=== PATIENT | male | born 1950 | race American Indian/Alaskan Native ===

== ENCOUNTER 2016-11-04 06:05 | Observation (INO) | payer MEDICARE, MEDICAID ==
[2016-11-04] MEDS ORDERED: Nitroglycerin 2% Ointment Foilpak UD TOP STA (06:24)
--- NOTE | 2016-11-04 06:24 | ED PDOC ---
Arrival/HPI - General Chief Complaint: Chest Pain Time Seen by Provider: 11/04/16 06:07 - History of Present Illness Narrative History of Present Illness (Text): 11/04/16 06:21 Patient with left-sided chest radiating rate into the left shoulder no shortness of breath no nausea no vomiting no fever no chills of visit is no headache denies any previous episodes of cardiac problems. Admits to smoking in the past also complaining of rash to the groin Past Medical History - Provider Review Nursing Documentation Reviewed: Yes - Travel History Have you recently traveled outside [place] w/in the past 3 mons?: Yes - Cardiac Hx Cardiac Disorders: Yes Hx Hypertension: Yes - Pulmonary Hx Respiratory Disorders: Yes Hx Chronic Obstructive Pulmonary Disease (COPD): Yes - Neurological Hx Neurological Disorder: No - HEENT Hx HEENT Disorder: No - Renal Hx Renal Disorder: No - Endocrine/Metabolic Hx Endocrine Disorders: No - Hematological/Oncological Hx Blood Disorders: Yes - Integumentary Hx Dermatological Disorder: No - Musculoskeletal/Rheumatological Hx Musculoskeletal Disorders: No - Gastrointestinal Hx Gastrointestinal Disorders: No - Genitourinary/Gynecological Hx Genitourinary Disorders: No - Psychiatric Hx Psychophysiologic Disorder: No Hx Substance Use: No Family/Social History - Physician Review Nursing Documentation Reviewed: Yes Family/Social History: No Known Family HX Smoking Status: Former Smoker Hx Alcohol Use: Yes Frequency of alcohol use: Socially Hx Substance Use: No Allergies/Home Meds Allergies/Adverse Reactions: Allergies No Known Allergies Allergy (Verified 11/04/16 06:11) Home Medications: Home Meds Medication Instructions Recorded Confirmed Abacavir Sulfate/Lamivudine 1 tab PO DAILY 11/04/16 11/04/16 [Epzicom] Atazanavir [Reyataz] 300 mg PO DAILY 11/04/16 11/04/16 Ritonavir [Norvir] 100 mg PO DAILY 11/04/16 11/04/16 amLODIPine [Norvasc] 5 mg PO DAILY 11/04/16 11/04/16 Review of Systems - Review of Systems Constitutional: Normal Eyes: Normal ENT: Normal Respiratory: Normal Cardiovascular: Chest Pain Gastrointestinal: Normal Genitourinary Male: Normal Musculoskeletal: Normal Skin: Normal, Rash (Groin) Neurological: Normal Endocrine: Normal Hemo/Lymphatic: Normal Psychiatric: Normal Physical Exam Vital Signs Reviewed: Yes Vital Signs Temp Pulse Resp BP Pulse Ox 11/04/16 10:51 74 16 150/97 H 96 11/04/16 09:59 80 16 161/110 H 100 11/04/16 09:00 71 16 155/107 H 98 11/04/16 06:15 97.7 F 79 20 160/101 H 97 Temperature: Afebrile Blood Pressure: Normal Pulse: Regular Respiratory Rate: Normal Appearance: Positive for: Well-Appearing, Non-Toxic, Comfortable Pain Distress: None Mental Status: Positive for: Alert and Oriented X 3 - Systems Exam Head: Present: Atraumatic, Normocephalic Pupils: Present: PERRL Extroacular Muscles: Present: EOMI Conjunctiva: Present: Normal Mouth: Present: Moist Mucous Membranes Neck: Present: Normal Range of Motion Respiratory/Chest: Present: Clear to Auscultation, Good Air Exchange. No: Respiratory Distress, Accessory Muscle Use Cardiovascular: Present: Regular Rate and Rhythm, Normal S1, S2. No: Murmurs Abdomen: Present: Normal Bowel Sounds. No: Tenderness, Distention, Peritoneal Signs Back: Present: Normal Inspection Upper Extremity: Present: Normal Inspection. No: Cyanosis, Edema Lower Extremity: Present: Normal Inspection. No: Edema Neurological: Present: GCS=15, CN II-XII Intact, Speech Normal Skin: Present: Warm, Dry, Normal Color. No: Rashes Psychiatric: Present: Alert, Oriented x 3, Normal Insight, Normal Concentration Medical Decision Making - Lab Interpretations Lab Results: 11/04/16 06:20 11/04/16 06:20 Lab Results 11/04/16 06:20: PT 11.1, INR 1.03, APTT 29.6 11/04/16 06:20: Sodium 137, Potassium 3.7, Chloride 106, Carbon Dioxide 24, Anion Gap 11, BUN 10, Creatinine 0.5, Est GFR ( Amer) > 60, Est GFR (Non- Af Amer) > 60, Random Glucose 120 H, Calcium 9.4, Magnesium 2.1, Total Bilirubin 1.6 H, AST 56, ALT 75 H, Alkaline Phosphatase 88, Lactate Dehydrogenase 676, Total Creatine Kinase 31 L, Troponin I 0.02, Total Protein 7.5, Albumin 3.8, Globulin 3.7, Albumin/Globulin Ratio 1.0 L 11/04/16 06:20: WBC 5.4, RBC 3.73, Hgb 11.8 L, Hct 34.1 L, MCV 91.4, MCH 31.6, MCHC 34.6, RDW 15.7 H, Plt Count 257, MPV 9.0, Gran % 63.6, Lymph % (Auto) 28.4 , [place] % (Auto) 7.6 H, Eos % (Auto) 0.2 L, Baso % (Auto) 0.2, Gran # 3.41, Lymph # 1.5, [place] # 0.4, Eos # 0.0, Baso # 0.01 - RAD Interpretation Radiology Orders: 11/04/16 06:25 CHEST PORTABLE [RAD] Stat - EKG Interpretation EKG Interpretation (Text): 11/04/16 06:23 EKG normal sinus rhythm with sinus arrhythmia and nonspecific ST segment changes possible early repolarization rate of 70 - Medication Orders Current Medication Orders: Discontinued Medications Albuterol/Ipratropium (Duoneb 3 Mg/0.5 Mg (3 Ml) Ud) 3 ml IH [id number] [facility] Last Admin: 11/05/16 07:57 Dose: 3 ml Albuterol/Ipratropium (Duoneb 3 Mg/0.5 Mg (3 Ml) Ud) 3 ml IH Q2H PRN PRN Reason: Shortness of Breath Amlodipine Besylate (Norvasc) 5 mg PO DAILY [facility] Last Admin: 11/05/16 09:45 Dose: 5 mg Comments: no working wal availabe, scanner broken. medication verified x3, patient verbalized name and birthday. Aspirin (Aspirin) 325 mg PO STAT STA Stop: 11/04/16 06:25 Last Admin: 11/04/16 06:51 Dose: 325 mg Aspirin (Ecotrin) 81 mg PO DAILY [facility] Last Admin: 11/05/16 09:47 Dose: 81 mg Comments: no working [facility] availabe, scanner broken. medication verified x3, patient verbalized name and birthday. Budesonide (Pulmicort Respules) 0.5 mg IH [id number] [facility] Last Admin: 11/05/16 07:57 Dose: 0.5 mg Morphine Sulfate (Morphine) 2 mg IVP STAT STA Stop: 11/04/16 07:04 Last Admin: 11/04/16 07:10 Dose: 2 mg Nitroglycerin (Nitro-Bid 2% Oint) 1 ea TOP STAT STA Stop: 11/04/16 06:25 Last Admin: 11/04/16 06:51 Dose: 1 ea Non-Formulary Medication (Atazanavir [Reyataz]) 300 mg PO DAILY [facility] Non-Formulary Medication (Ritonavir [Norvir]) 100 mg PO DAILY [facility] Pneumococcal Polyvalent Vaccine (Pneumovax 23 Vaccine) 0.5 ml IM .ONCE ONE Stop: 11/04/16 14:18 Prednisone (Prednisone Tab) 20 mg PO DAILY [facility] Last Admin: 11/05/16 09:46 Dose: 20 mg Comments: no working wal availabe, scanner broken. medication verified x3, patient verbalized name and birthday. Tiotropium [place] (Spiriva) 18 mcg IH DAILY [facility] Last Admin: 11/05/16 11:25 Dose: 18 mcg - Transfer of Care Patient signed out to Dr:: sailaja labs and dispo Disposition/Present on Arrival - Present on Arrival Any Indicators Present on Arrival: No History of DVT/PE: No History of Uncontrolled Diabetes: No Urinary Catheter: No History of Decub. Ulcer: No History Surgical Site Infection Following: None - Disposition Have Diagnosis and Disposition been Completed?: Yes Diagnosis: Chest pain Disposition: HOSPITALIZED Disposition Time: 07:00 Condition: FAIR
[2016-11-04 06:38] LABS: ADD MANUAL DIFF? NO
[2016-11-04 07:00] LABS: BASO # 0.01 K/mm3 (0.0-2.0); BASO % 0.2 % (0.0-3.0); EOS % 0.2 % (1.5-5.0); GRAN # 3.41 (1.4-6.5); GRAN % 63.6 % (50.0-68.0); HEMATOCRIT 34.1 % (42.0-52.0); LYMPH # 1.5 (1.2-3.4); LYMPH % 28.4 % (22.0-35.0); MEAN CELL VOLUME 91.4 fL (80.0-105.0); MEAN CORPUSCULAR HEMOGLOBIN 31.6 pg (25.0-35.0); MEAN CORPUSCULAR HGB CONC 34.6 g/dl (31.0-37.0); MONO # 0.4 (0.1-0.6); MONO % 7.6 % (1.0-6.0); PLATELET COUNT 257 10^3/uL (120.0-450.0); RED CELL DISTRIBUTION WIDTH 15.7 % (11.5-14.5); WHITE BLOOD COUNT 5.4 10^3/ul (4.5-11.0)
[2016-11-04] MEDS ORDERED: Morphine 2 mg/ml ISec IVP STA (07:03)
[2016-11-04 07:07] LABS: ALKALINE PHOSPHATASE 88 U/L (38-133); ALT/SGPT 75 U/L (7-56); AST/SGOT 56 U/L (15-59); BILIRUBIN,TOTAL 1.6 mg/dL (0.2-1.3); BLOOD UREA NITROGEN 10 mg/dL (7-21); CALCIUM 9.4 mg/dL (8.4-10.5); CARBON DIOXIDE 24 mmol/L (21-33); CHLORIDE 106 mmol/L (98-107); GFR AFRICAN-AMERICAN > 60; GLUCOSE,RANDOM 120 mg/dL (70-110); INR 1.03 (0.93-1.08); MAGNESIUM 2.1 mg/dL (1.7-2.2); PARTIAL THROMBOPLASTIN TIME 29.6 Seconds (23.7-30.8); POTASSIUM 3.7 mmol/L (3.6-5.0); SODIUM 137 mmol/L (132-148); TOTAL PROTEIN 7.5 g/dL (5.8-8.3)
--- NOTE | 2016-11-04 07:10 | ED PDOC ---
Physical Exam Vital Signs Reviewed: Yes Vital Signs Temp Pulse Resp BP Pulse Ox 11/04/16 09:00 71 16 155/107 H 98 11/04/16 06:15 97.7 F 79 20 160/101 H 97 Temperature: Afebrile Blood Pressure: Hypertensive Pulse: Regular Respiratory Rate: Normal Appearance: Positive for: Well-Appearing, Non-Toxic, Comfortable Pain Distress: None Mental Status: Positive for: Alert and Oriented X 3 Medical Decision Making ED Course and Treatment: 11/04/16 07:09 pending labs and admission for chest pain. 11/04/16 07:[address] Thakur, who agrees with patient admission to telemetry observation. Dr. Graves on consult. pt in no distress and denies complaints, aware of and agrees with plan chest xray: Creator : Neftali Gr MD 11/04/2016 08:37 IMPRESSION: No active disease. - Lab Interpretations Lab Results: 11/04/16 06:20 11/04/16 06:20 Lab Results 11/04/16 06:20: PT 11.1, INR 1.03, APTT 29.6 11/04/16 06:20: Sodium 137, Potassium 3.7, Chloride 106, Carbon Dioxide 24, Anion Gap 11, BUN 10, Creatinine 0.5, Est GFR ( Amer) > 60, Est GFR (Non- Af Amer) > 60, Random Glucose 120 H, Calcium 9.4, Magnesium 2.1, Total Bilirubin 1.6 H, AST 56, ALT 75 H, Alkaline Phosphatase 88, Lactate Dehydrogenase 676, Total Creatine Kinase 31 L, Troponin I 0.02, Total Protein 7.5, Albumin 3.8, Globulin 3.7, Albumin/Globulin Ratio 1.0 L 11/04/16 06:20: WBC 5.4, RBC 3.73, Hgb 11.8 L, Hct 34.1 L, MCV 91.4, MCH 31.6, MCHC 34.6, RDW 15.7 H, Plt Count 257, MPV 9.0, Gran % 63.6, Lymph % (Auto) 28.4 , [place] % (Auto) 7.6 H, Eos % (Auto) 0.2 L, Baso % (Auto) 0.2, Gran # 3.41, Lymph # 1.5, [place] # 0.4, Eos # 0.0, Baso # 0.01 I have reviewed the lab results: Yes - RAD Interpretation Radiology Orders: 11/04/16 06:25 CHEST PORTABLE [RAD] Stat - Medication Orders Current Medication Orders: Albuterol/Ipratropium (Duoneb 3 Mg/0.5 Mg (3 Ml) Ud) 3 ml IH [id number] [facility] Albuterol/Ipratropium (Duoneb 3 Mg/0.5 Mg (3 Ml) Ud) 3 ml IH Q2H PRN PRN Reason: Shortness of Breath Budesonide (Pulmicort Respules) 0.5 mg IH [id number] [facility] Prednisone (Prednisone Tab) 20 mg PO DAILY [facility] Discontinued Medications Aspirin (Aspirin) 325 mg PO STAT STA Stop: 11/04/16 06:25 Last Admin: 11/04/16 06:51 Dose: 325 mg Morphine Sulfate (Morphine) 2 mg IVP STAT STA Stop: 11/04/16 07:04 Last Admin: 11/04/16 07:10 Dose: 2 mg Nitroglycerin (Nitro-Bid 2% Oint) 1 ea TOP STAT STA Stop: 11/04/16 06:25 Last Admin: 11/04/16 06:51 Dose: 1 ea - Scribe Statement The provider has reviewed the documentation as recorded by the Jim Ordonez Provider Scribe Attestation: All medical record entries made by the Scribtena were at my direction and personally dictated by me. I have reviewed the chart and agree that the record accurately reflects my personal performance of the history, physical exam, medical decision making, and the department course for this patient. I have also personally directed, reviewed, and agree with the discharge instructions and disposition. Disposition/Present on Arrival - Present on Arrival Any Indicators Present on Arrival: No History of DVT/PE: No History of Uncontrolled Diabetes: No Urinary Catheter: No History of Decub. Ulcer: No History Surgical Site Infection Following: None - Disposition Have Diagnosis and Disposition been Completed?: Yes Diagnosis: Chest pain Disposition: HOSPITALIZED Disposition Time: 07:48 Patient Plan: Observation Patient Problems: Current Active Problems Problem Status Onset Chest pain Acute Condition: FAIR
[2016-11-04 07:16] LABS: TROPONIN I 0.02 ng/mL
[2016-11-04] MEDS ORDERED: Albuterol-Ipratrop 3 mg / 0.5 (3 ml) UD IH PRN (08:22)
--- NOTE | 2016-11-04 08:34 | RAD ---
HISTORY: Chest pain COMPARISON: No prior. FINDINGS: LUNGS: No active pulmonary disease. PLEURA: No significant pleural effusion identified, no pneumothorax apparent. CARDIOVASCULAR: Normal. OSSEOUS STRUCTURES: No significant abnormalities. VISUALIZED UPPER ABDOMEN: Normal. OTHER FINDINGS: None. IMPRESSION: No active disease.
[2016-11-04] MEDS ORDERED: RITONAVIR 100 MG PO SCH (10:00)
[2016-11-04] MEDS ORDERED: ATAZANAVIR 300 MG PO SCH (10:00)
[2016-11-04] MEDS: Tiotropium 18 mcg Cap For Inhalation IH SCH (10:15)
--- NOTE | 2016-11-04 12:25 | HP ---
HISTORY OF PRESENT ILLNESS: I was called down to the Emergency Room by the Emergency Room doctor to see this young man. He is 65 years old. He presents with left shoulder pain, left-sided chest pain, shortness of breath in the Emergency Room and I was called down to put him on observation and watch him overnight for chest pain, shortness of breath. He is also a smoker in the past. Has a rash to h is groin. PAST MEDICAL HISTORY: Hypertension, asthma, COPD. He said he quit smoking. He had blood problems i n the past. FAMILY HISTORY: Hypertension in the family. SOCIAL HISTORY: He is a former smoker. He does drink alcohol socially. No drugs. ALLERGIES: No known drug allergies. MEDICATIONS: He is currently on Epzicom, Proventil, aspirin, Reyataz, Norvir, Spiriva, and Norvasc. REVIEW OF SYSTEMS: No acute vision changes or hearing changes. No sore throat. He does have chest pain, left side. He does have shortness of breath. Mild wheeze, poor inspiration. No abdominal umang n, no nausea, vomiting, no constipation. He can move all 4 extremities. PHYSICAL EXAMINATION: VITAL SIGNS: He has a 97.7 temp, 79 pulse, 20 respiratory rate, 160/101 blood pressure, 97% O2 sat o n room air. GENERAL: His head is atraumatic, normocephalic. He is well appearing. Alert and oriented x 3. HEENT: Head is atraumatic, normocephalic. Extraocular muscles are intact. Pupils equal, reactive t o light. Throat is dry, no erythema. NECK: Supple, no JVD. Thyroid midline. No palpable appreciative lymphadenopathy. LUNGS: Have decreased breath sounds bilaterally, fair exchange, no wheezes or rhonchi. HEART: Regular rate. Normal S1, S2. ABDOMEN: Soft, nontender, positive bowel sounds, no guarding, no rebound, no CVA tenderness. EXTREMITIES: Have no edema. NEUROLOGIC: GCS is 15. Cranial nerves II-XII grossly intact. Normal speech. SKIN: Warm and dry. NEUROLOGIC: Alert and oriented x 3. Normal insight. Cranial nerves II-XII grossly intact. EKG was normal sinus rhythm, sinus arrhythmia, nonspecific ST segment changes. He also had a chest x -ray that is pending. LABORATORY DATA: He had lab tests. White count 5.4, 11.8 hemoglobin, 34.1 hematocrit with 257 plate lets. INR is 1.03. He has a 137 sodium, potassium 3.7, BUN 10, creatinine 0.5, GFR is greater than 6 0, sugar is 120, calcium 9.4, magnesium 2.1, total bili is 1.6, AST is 56, ALT 75, alkaline phosphata se is 88. Lactic dehydrogenase is 676. Total creatine kinase is 31. First troponin 0.02. Total pr otein 7.5, albumin is 3.8, globulin 3.7. He will have a consult with pulmonary and cardiology. Get 2 more troponins. Have some IV fluids. W e will give him a diet. Hopefully, this pain will go away. I put him back on his medications becaus e his blood pressure is elevated, and some oxygen. He is here for chest pain, shortness of breath. Titi Thakur DO cc: [id number] TT: 11/04/2016 12:24:05 mary
--- NOTE | 2016-11-04 12:32 | CON ---
DATE: 11/04/2016 REASON FOR CONSULTATION: Asthma. REFERRING PHYSICIAN: Dr. Thakur. HISTORY OF PRESENT ILLNESS: The patient is a 65-year-old male with past medical history significant for hypertension, asthma, questionable chronic obstructive pulmonary disease, positive extensive smoking history, who presents to with main complaint of chest discomfort "on and off" for the past week. The patient also states to some mild dyspnea on exertion and nonproductive cough over the past week. He is not short of breath at rest. He does not produce sputum. As above, the patient does state to some chest discomfort "on and off" for the past week. The patient states that his chest discomfort is primarily when he coughs. There is no history of coughing up of blood. There is no history of chest pain made worse with deep respirations. There is no history of temperatures, chills or infectious exposure. There is no history of night sweats, weight loss or appetite change prior to the above events. No history of leg or calf pains. No history of syncope or diaphoresis. No history of recent travel or trauma. REVIEW OF SYSTEMS: No history of nausea, vomiting or diarrhea. No acute urinary symptoms. No new neurologic complaints. Rest of the review of systems is negative. ALLERGIES: No known allergies. SOCIAL HISTORY: Positive for extensive tobacco usage -- stopped 5 years ago. No alcohol. FAMILY HISTORY: No inheritable diseases. HOME MEDICATIONS: Include aspirin, Norvasc, Spiriva, Norvir, abacavir. PHYSICAL EXAMINATION: GENERAL: The patient appears comfortable at rest. He is not short of breath. VITAL SIGNS: Temperature is 97.7, pulse 79, respirations 18-20, blood pressure 160/101. Oxygen saturation on room air is 97%. HEENT: Normocephalic, atraumatic. NECK: No JVD. CARDIOVASCULAR: Positive S1, S2. No S3. LUNGS: Decreased breath sounds at the bases. Minimal bilateral rhonchi. No wheezing. EXTREMITIES: No clubbing, cyanosis, or edema. Calves are nontender to palpation. GASTROINTESTINAL: Abdomen is soft, nontender, nondistended. Bowel sounds are positive. SKIN: No acute rash. NEUROLOGIC: Limited at the present time. PERTINENT LABORATORY DATA: Chest x-ray was done this morning and reviewed. There are no significant infiltrates noted. There is no official reading on the chart as of yet. CBC: White count 5.4, hemoglobin 11.8, hematocrit 34.1, platelets of 257. Complete metabolic profile: Glucose 120, bilirubin 1.6, ALT 75, creatine kinase 31. Rest of the metabolic profile is within normal limits. IMPRESSION: 1. Mild acute bronchitis. 2. Asthma. 3. Questionable chronic obstructive pulmonary disease. 4. Hypertension. 5. Chest discomfort. PLAN: The patient presents to with main complaint of chest discomfort "on and off" over the past week. He does state to me firmly that his chest discomfort is primarily when he coughs. In addition to the above , the patient also states to some dyspnea on exertion and nonproductive cough over the past week. I did review the chest x-ray as above. There are no official results on the chart, but I do not appreciate any significant infiltrates. On physical exam, only minimal bronchospasm is noted. However, there is no significant alveolar arterial gradient. Oxygen saturation on room air is 97%. I will start the patient on DuoNeb treatments, inhaled Pulmicort and low dose oral steroids for now. Cardiology evaluation with Dr. Graves has been ordered. I did discuss the above with Dr. Thakur at length. Thank you very much for this pulmonary consultation. Benjie Carmichael MD cc: [phone] TT: 11/04/2016 12:31:42 Confirmation # [id number] Dictation # [id number] mary HERNANDEZ
[2016-11-04] MEDS: Albuterol-Ipratrop 3 mg / 0.5 (3 ml) UD IH SCH ×2 (13:33→19:40)
[2016-11-04 14:16] VITALS: BMI 23.0
[2016-11-04] MEDS ORDERED: Pneumococcal 23-Valent Vaccine IM ONE (14:17)
--- NOTE | 2016-11-04 16:42 | CON ---
DATE: 11/04/2016 HISTORY OF PRESENT ILLNESS: The patient is a 65-year-old male who presents with cough and focal ches t pain. His chest pain is predominantly during a cough and exacerbated by a cough with deep inspirat ion. The patient has an extensive pulmonary history with bronchospasm as well as COPD from smoking. He st opped smoking 5 years ago. In addition, the patient suffers from hypertension. No diabetes mellitus. No previous cardiac histo ry. SOCIAL HISTORY: He is a former smoker. REVIEW OF SYSTEMS: A 14-point review of systems was reviewed in detail. Other than the above sympto ms and some exertional dyspnea, there is no other cardiac symptomatology. PHYSICAL EXAMINATION: VITAL SIGNS: Blood pressure is 164/109, heart rate is in the 70s. NECK: Negative JVD. LUNGS: Without rales. HEART: Reveals S1, S2. EXTREMITIES: Without edema. DIAGNOSTICS: Includes an EKG which shows no acute changes. LABORATORIES: Hemoglobin is 11.8. Chemistries: BUN and creatinine are unremarkable. Troponins are negative x 2. IMPRESSION: 1. Focal chest pain due to musculoskeletal issues. 2. No evidence for acute coronary syndrome. 3. Chronic obstructive pulmonary disease. 4. Accelerated hypertension. 5. Dyspnea. Given these findings, the patient was started on Norvasc for blood pressure. Will add low dose diure tics to his medical regimen. Once his cough and chest pain symptoms have resolved, we will arrange for a stress test which can be done as an outpatient. Ross Graves MD cc: [phone] TT: 11/04/2016 16:42:14 Confirmation # [id number] Dictation # [id number] mn
[2016-11-04 17:17] VITALS: RESP 20
[2016-11-04] MEDS: Budesonide 0.5 mg/2 ml Inhal Susp UD IH SCH (19:41)
--- NOTE | 2016-11-04 22:35 | CARD ---
APPROVED REPORT EKG Measurement Heart [id number] <Conclusion> Normal sinus rhythm with sinus arrhythmia Possible Left atrial enlargement Left ventricular hypertrophy ST elevation, probably due to early repolarization Abnormal ECG
[2016-11-05] MEDS: Albuterol-Ipratrop 3 mg / 0.5 (3 ml) UD IH SCH ×2 (02:48→07:57)
[2016-11-05] MEDS: Budesonide 0.5 mg/2 ml Inhal Susp UD IH SCH (07:57)
--- NOTE | 2016-11-05 07:59 | PN ---
DATE: 11/05/2016 SUBJECTIVE: The patient appears very comfortable this morning. He is not short of breath at rest. PHYSICAL EXAMINATION: VITAL SIGNS: (Last noted in the computer): Temperature is 98.4, pulse 76, respirations 18/20, blood pressure 141/102. Oxygen saturation on room air is 96 -100%. HEENT: Normocephalic, atraumatic. No JVD. CARDIOVASCULAR: Positive S1, S2. No S3. LUNGS: Clear bilaterally this morning. EXTREMITIES: No clubbing, cyanosis, or edema. Calves are nontender to palpation. GASTROINTESTINAL: Abdomen is soft, nontender, nondistended. Bowel sounds are positive. SKIN: No acute rash. NEUROLOGIC: Limited at the present time. IMPRESSION: 1. Mild acute bronchitis. 2. Asthma. 3. Questionable chronic obstructive pulmonary disease. 4. Hypertension. 5. Chest discomfort -- resolving. PLAN: The patient appears very comfortable this morning. He is not short of breath at rest. His cough is much less. His chest discomfort is also much less. On physical exam, his lungs are now clear. Oxygen saturation on room air is 96-100%. I will continue with the current nebulizer treatments and low- dose oral steroids for now. Input by cardiology (Dr. Graves) is noted. Clinical status of the patient is significantly improved -- compared to the initial presentation. I will discuss the above with Dr. Thakur. Benjie Carmichael MD cc: [phone] TT: 11/05/2016 07:58:42 Confirmation # [id number] Dictation # [id number] tn MTDMary Carmen
[2016-11-05 08:32] LABS: HEMATOCRIT 33.6 % (42.0-52.0); MEAN CELL VOLUME 91.3 fL (80.0-105.0); MEAN CORPUSCULAR HEMOGLOBIN 31.3 pg (25.0-35.0); MEAN CORPUSCULAR HGB CONC 34.2 g/dl (31.0-37.0); MEAN PLATELET VOLUME 8.9 fl (7.0-11.0); RED CELL DISTRIBUTION WIDTH 15.6 % (11.5-14.5); WHITE BLOOD COUNT 6.8 10^3/ul (4.5-11.0)
--- NOTE | 2016-11-05 08:35 | DS ---
The patient is doing well this morning. He is resting in bed. He slept well. He is eating well. H e is breathing well. No chest pain or shortness of breath at this time either. He was seen by the p ulmonologist and the shop worker and they said he could be discharged. He will be home on his medic ations that he takes at home. He takes Spiriva, Reyataz, Norvir, Norvasc, aspirin, Proventil, Epzico m, also prednisone 20 mg for 2 days, 10 mg for 2 days and stop. He will follow up with his primary c are doctor in the next 3 days. His 3 troponins were negative at 0.02, less than 0.01, less than 0.01 . He was here for chest pain, musculoskeletal like; chronic obstructive pulmonary disease, hypertension , dyspnea and he is being discharged today. Titi Thakur DO cc: [id number] TT: 11/05/2016 08:34:27 tn
[2016-11-05 08:45] LABS: ALKALINE PHOSPHATASE 73 U/L (38-133); ALT/SGPT 61 U/L (7-56); AST/SGOT 38 U/L (15-59); BILIRUBIN,TOTAL 0.6 mg/dL (0.2-1.3); BLOOD UREA NITROGEN 9 mg/dL (7-21); CALCIUM 9.4 mg/dL (8.4-10.5); CARBON DIOXIDE 26 mmol/L (21-33); CHLORIDE 104 mmol/L (98-107); GFR AFRICAN-AMERICAN > 60; GLUCOSE,RANDOM 84 mg/dL (70-110); POTASSIUM 3.9 mmol/L (3.6-5.0); SODIUM 136 mmol/L (132-148); TOTAL PROTEIN 6.9 g/dL (5.8-8.3)
[2016-11-05 09:20] VITALS: BP 140/95; TEMP 97.9; O2SAT 99
--- NOTE | 2016-11-05 10:37 | PN ---
DATE: 11/05/2016 The patient is feeling better. PHYSICAL EXAMINATION: VITAL SIGNS: Blood pressure 140/95, heart rate is in the 60s. NECK: Negative JVD. LUNGS: Without rales. HEART: S1, S2. EXTREMITIES: Without edema. LABORATORY DATA: Hemoglobin is 11.5. Chemistries: Troponins are negative x 3. BUN and creatinine are unremarkable. IMPRESSION: 1. Atypical chest pain. 2. No evidence for acute coronary syndrome. 3. History of hypertension. 4. Hypercholesterolemia. 5. Bronchospasm. PLAN: Given these findings, we will discontinue telemetry today. From a cardiac perspective, the pa shad can be discharged. We will arrange for an outpatient stress test given the patient's cardiac risk factors. Ross Graves MD cc: [phone] TT: 11/05/2016 10:37:13 Confirmation # [id number] Dictation # [id number] mary
[2016-11-05] MEDS: Tiotropium 18 mcg Cap For Inhalation IH SCH (11:25)
[2016-11-05 12:55] VITALS: PULSE 98
== END 2016-11-05 13:12 | disposition home or self-care (01) ==
LOC: ED 06:05 → ERH 07:57 → 3RSO 10:21 → ERH 10:22 → 3RSO 11:33
PROVIDERS: ADMIT Family Medicine; ATTEND Family Medicine
DX: R07.89 Other chest pain (principal); J20.9 Acute bronchitis, unspecified; J44.0 Chronic obstructive pulmonary disease with (acute) lower respiratory infection; I10 Essential (primary) hypertension; E78.00 Pure hypercholesterolemia, unspecified; R21 Rash and other nonspecific skin eruption; Z87.891 Personal history of nicotine dependence; Z82.49 Family history of ischemic heart disease and other diseases of the circulatory system
CPT/HCPCS: 36415; 71010; 80053; 82550; 83615; 83735; 84484; 85025; 85027; 85610; 85730; 93005; 94640; 94760; 96374; 99285; G0378; J2270

== ENCOUNTER 2016-11-20 06:09 | Day surgery (SDC) | payer MEDICARE, MEDICAID ==
[2016-11-20] MEDS ORDERED: Phenylephrine 10 mg/ml Inj ONE (06:22)
[2016-11-20] MEDS ORDERED: Iodixanol 320 MG/ML 100 ML BOTTLE IV ONE (06:22)
[2016-11-20] MEDS ORDERED: Lidocaine 2% Inj (20ml) ONE (06:22)
[2016-11-20] MEDS ORDERED: Iohexol 350mgl/ml 50 ML ONE (06:22)
[2016-11-20] MEDS ORDERED: Nitroglycerin 50mg in D5W 0 MG/0 ML BOTTLE IV ONE (06:22)
[2016-11-20] MEDS ORDERED: Iodixanol 320 MG/ML 200 ML BOTTLE IV ONE (06:22)
[2016-11-20 06:38] LABS: ADD MANUAL DIFF? NO
[2016-11-20 06:53] LABS: BASO # 0.01 K/mm3 (0.0-2.0); BASO % 0.3 % (0.0-3.0); EOS # 0.1 (0.0-0.7); EOS % 1.5 % (1.5-5.0); GRAN # 2.07 (1.4-6.5); HEMATOCRIT 34.5 % (42.0-52.0); LYMPH # 1.5 (1.2-3.4); LYMPH % 37.2 % (22.0-35.0); MEAN CELL VOLUME 92.7 fL (80.0-105.0); MEAN CORPUSCULAR HEMOGLOBIN 30.9 pg (25.0-35.0); MEAN CORPUSCULAR HGB CONC 33.3 g/dl (31.0-37.0); MEAN PLATELET VOLUME 9.3 fl (7.0-11.0); MONO # 0.4 (0.1-0.6); PLATELET COUNT 243 10^3/uL (120.0-450.0); RED CELL DISTRIBUTION WIDTH 15.9 % (11.5-14.5)
[2016-11-20 06:57] LABS: INR 1.01 (0.93-1.08); PARTIAL THROMBOPLASTIN TIME 21.9 Seconds (23.7-30.8)
[2016-11-20 06:58] LABS: BLOOD UREA NITROGEN 5 mg/dL (7-21); CALCIUM 8.8 mg/dL (8.4-10.5); CARBON DIOXIDE 20 mmol/L (21-33); CHLORIDE 109 mmol/L (95-110); GFR AFRICAN-AMERICAN > 60; GLUCOSE,RANDOM 71 mg/dL (70-110); POTASSIUM 3.8 mmol/L (3.6-5.0); SODIUM 139 mmol/L (132-148)
[2016-11-20] MEDS ORDERED: Midazolam 2 MG/2 ML VIAL ONE ×2 (07:13→08:21)
[2016-11-20] MEDS ORDERED: Sodium Chloride 0.9% 1,000 ML IV SCH (09:30)
--- NOTE | 2016-11-20 11:59 | CARD ---
APPROVED REPORT EKG Measurement Heart [id number] [place] [id number] [id number] <Conclusion> Normal sinus rhythm Voltage criteria for left ventricular hypertrophy Abnormal ECG
--- NOTE | 2016-11-20 12:05 | CARD ---
APPROVED REPORT EKG Measurement Heart [id number] [place] 124P61 [id number] <Conclusion> Normal sinus rhythm Voltage criteria for left ventricular hypertrophy ST elevation, consider early repolarization, pericarditis, or injury Abnormal ECG
[2016-11-20 17:55] VITALS: RESP 18
[2016-11-21 00:22] VITALS: O2SAT 97
[2016-11-21 05:54] VITALS: BP 117/71; PULSE 74; TEMP 98.3
[2016-11-21 07:30] LABS: ADD MANUAL DIFF? NO
[2016-11-21 07:51] LABS: BASO # 0.01 K/mm3 (0.0-2.0); BASO % 0.2 % (0.0-3.0); EOS % 0.7 % (1.5-5.0); GRAN # 2.43 (1.4-6.5); GRAN % 56.9 % (50.0-68.0); HEMATOCRIT 35.1 % (42.0-52.0); LYMPH # 1.5 (1.2-3.4); MEAN CELL VOLUME 92.6 fL (80.0-105.0); MEAN CORPUSCULAR HEMOGLOBIN 30.1 pg (25.0-35.0); MEAN CORPUSCULAR HGB CONC 32.5 g/dl (31.0-37.0); MEAN PLATELET VOLUME 9.5 fl (7.0-11.0); MONO # 0.4 (0.1-0.6); MONO % 8.2 % (1.0-6.0); PLATELET COUNT 259 10^3/uL (120.0-450.0); RED CELL DISTRIBUTION WIDTH 15.9 % (11.5-14.5); WHITE BLOOD COUNT 4.3 10^3/ul (4.5-11.0)
[2016-11-21 08:09] LABS: BLOOD UREA NITROGEN 6 mg/dL (7-21); CALCIUM 8.4 mg/dL (8.4-10.5); CARBON DIOXIDE 21 mmol/L (21-33); CHLORIDE 110 mmol/L (98-107); GFR AFRICAN-AMERICAN > 60; GLUCOSE,RANDOM 81 mg/dL (70-110); POTASSIUM 3.4 mmol/L (3.6-5.0); SODIUM 136 mmol/L (132-148)
--- NOTE | 2016-11-21 10:22 | CARD ---
APPROVED REPORT EKG Measurement Heart [id number] [place] 130P62 [id number] <Conclusion> Normal sinus rhythm Possible Left atrial enlargement Left ventricular hypertrophy ST elevation, probably due to early repolarization
--- NOTE | 2016-11-21 23:54 | CP.PCM.HP ---
History of Present Illness - History of Present Illness History of Present Illness: He comes in today being a 66-year-old -[place] male who is status post stress test is now here for cardiac cath he had [address] Graves now he can be watched overnight on telemetry and hopefully if he does well tomorrow he will be discharged he has a past medical history of COPD hypertension CVA HIV for 6 years he had a colonoscopy right leg fracture with repair he quit smoking 5 years ago occasional alcohol no substance abuse he has coronary artery disease said chest pain peripheral swelling edema he is awake alert and oriented 3 comfortable no anxiety no depression he has no known drug allergies Present on Admission - Present on Admission Any Indicators Present on Admission: Yes History of DVT/PE: No History of Uncontrolled Diabetes: No Urinary Catheter: No Decubitus Ulcer Present: No Review of Systems - Cardiovascular Cardiovascular: Chest Pain with Activity - Respiratory Respiratory: Dyspnea on Exertion Past Patient History - Past Social History Smoking Status: Former Smoker - CARDIAC Hx Pacemaker: No - PULMONARY Hx Asthma: Yes Hx Chronic Obstructive Pulmonary Disease (COPD): Yes - NEUROLOGICAL Hx Paralysis: No - HEENT Hx HEENT Problems: No - RENAL Hx Chronic Kidney Disease: No - ENDOCRINE/METABOLIC Hx Endocrine Disorders: No - HEMATOLOGICAL/ONCOLOGICAL Hx Blood Transfusions: No - INTEGUMENTARY Hx Dermatological Problems: No - MUSCULOSKELETAL/RHEUMATOLOGICAL Hx Musculoskeletal Disorders: No - GASTROINTESTINAL Hx Gastrointestinal Disorders: No - GENITOURINARY/GYNECOLOGICAL Hx Genitourinary Disorders: No - PSYCHIATRIC Hx Physical Abuse: No Hx Substance Use: No - SURGICAL HISTORY Hx Surgeries: Yes - ANESTHESIA Hx Anesthesia Reactions: No Hx Malignant Hyperthermia: No Meds Allergies/Adverse Reactions: Allergies Allergy/AdvReac Type Severity Reaction Status Date / Time No Known Allergies Allergy Verified 11/04/16 06:11 Physical Exam - Constitutional Appears: No Acute Distress - Head Exam Head Exam: NORMAL INSPECTION - ENT Exam ENT Exam: Mucous Membranes Moist - Respiratory Exam Respiratory Exam: Clear to Auscultation Bilateral, NORMAL BREATHING PATTERN - Cardiovascular Exam Cardiovascular Exam: REGULAR RHYTHM - GI/Abdominal Exam GI & Abdominal Exam: Normal Bowel Sounds, Soft - Extremities Exam Extremities exam: Positive for: normal inspection - Psychiatric Exam Psychiatric exam: Normal Mood Results - Vital Signs Recent Vital Signs: Last Vital Signs Temp 98.3 F 11/21/16 05:53 Pulse 74 11/21/16 05:53 Resp 18 11/21/16 05:53 BP 117/71 11/21/16 05:53 Pulse Ox 97 11/21/16 05:53 - Labs Result Diagrams: 11/21/16 06:30 11/21/16 06:30 Labs: Laboratory Results - last 24 hr 11/21/16 11/21/16 06:30 06:30 WBC 4.3 L RBC 3.79 Hgb 11.4 L Hct 35.1 L MCV 92.6 MCH 30.1 MCHC 32.5 RDW 15.9 H Plt Count 259 MPV 9.5 Gran % 56.9 Lymph % (Auto) 34.0 [place] % (Auto) 8.2 H Eos % (Auto) 0.7 L Baso % (Auto) 0.2 Gran # 2.43 Lymph # 1.5 [place] # 0.4 Eos # 0.0 Baso # 0.01 Sodium 136 Potassium 3.4 L Chloride 110 H Carbon Dioxide 21 Anion Gap 8 L BUN 6 L Creatinine 0.7 Est GFR ( Amer) > 60 Est GFR (Non-Af Amer) > 60 Random Glucose 81 Calcium 8.4 Assessment & Plan - Assessment and Plan (Free Text) Assessment: He has CAD COPD hypertension HIV status post [address] Graves - Date & Time Date: 11/20/16 Time: 07:00 Decision To Admit - . Admitting Physician: Titi Thakur (He is being admitted overnight stay on telemetry with a fast for 6 hours if he does well he will be discharged tomorrow status post [address] Graves for coronary artery disease)
--- NOTE | 2016-11-22 00:10 | CP.PCM.DIS ---
Provider - Provider Attending physician: Titi Thakur DO Primary care physician: NO PRIMARY CARE PROVIDER Time Spent in preparation of Discharge (in minutes): 20 Hospital Course - Lab Results Lab Results: Most Recent Lab Values WBC 4.3 10^3/ul (4.5-11.0) L 11/21/16 06:30 RBC 3.79 10^6/uL (3.5-6.1) 11/21/16 06:30 Hgb 11.4 gm/dL (14.0-18.0) L 11/21/16 06:30 Hct 35.1 % (42.0-52.0) L 11/21/16 06:30 MCV 92.6 fL (80.0-105.0) 11/21/16 06:30 MCH 30.1 pg (25.0-35.0) 11/21/16 06:30 MCHC 32.5 g/dl (31.0-37.0) 11/21/16 06:30 RDW 15.9 % (11.5-14.5) H 11/21/16 06:30 Plt Count 259 10^3/uL (120.0-450.0) 11/21/16 06:30 MPV 9.5 fl (7.0-11.0) 11/21/16 06:30 Gran % 56.9 % (50.0-68.0) 11/21/16 06:30 Lymph % (Auto) 34.0 % (22.0-35.0) 11/21/16 06:30 [place] % (Auto) 8.2 % (1.0-6.0) H 11/21/16 06:30 Eos % (Auto) 0.7 % (1.5-5.0) L 11/21/16 06:30 Baso % (Auto) 0.2 % (0.0-3.0) 11/21/16 06:30 Gran # 2.43 (1.4-6.5) 11/21/16 06:30 Lymph # 1.5 (1.2-3.4) 11/21/16 06:30 [place] # 0.4 (0.1-0.6) 11/21/16 06:30 Eos # 0.0 (0.0-0.7) 11/21/16 06:30 Baso # 0.01 K/mm3 (0.0-2.0) 11/21/16 06:30 PT 10.9 Seconds (9.9-11.8) 11/20/16 06:30 INR 1.01 (0.93-1.08) 11/20/16 06:30 APTT 21.9 Seconds (23.7-30.8) L 11/20/16 06:30 Sodium 136 mmol/L (132-148) 11/21/16 06:30 Potassium 3.4 mmol/L (3.6-5.0) L 11/21/16 06:30 Chloride 110 mmol/L (98-107) H 11/21/16 06:30 Carbon Dioxide 21 mmol/L (21-33) 11/21/16 06:30 Anion Gap 8 (10-20) L 11/21/16 06:30 BUN 6 mg/dL (7-21) L 11/21/16 06:30 Creatinine 0.7 mg/dL (0.5-1.4) 11/21/16 06:30 Est GFR ( Amer) > 60 11/21/16 06:30 Est GFR (Non-Af Amer) > 60 11/21/16 06:30 Random Glucose 81 mg/dL (70-110) 11/21/16 06:30 Calcium 8.4 mg/dL (8.4-10.5) 11/21/16 06:30 Blood Type A NEGATIVE 11/20/16 06:30 Blood Type Confirm A NEGATIVE 11/20/16 06:45 Antibody Screen Negative 11/20/16 06:30 BBK History Checked No verified bt 11/20/16 06:30 - Hospital Course Hospital Course: He had a positive stress test on the outpatient he came in yesterday for cardiac cath with Dr. Ross Graves he had 2 stents placed he was watched overnight he did very well I was going be discharged home he was here for CAD COPD hypertension history of HIV 2 stents placed his prescriptions were given his diet was given outpatient instructions were given to follow-up with his primary care doctor and Dr. Graves he should do very well and will call if there are any issues Discharge Exam - Head Exam Head Exam: NORMAL INSPECTION - ENT Exam ENT Exam: Mucous Membranes Moist - Respiratory Exam Respiratory Exam: Clear to PA & Lateral, NORMAL BREATHING PATTERN - Cardiovascular Exam Cardiovascular Exam: REGULAR RHYTHM - GI/Abdominal Exam GI & Abdominal Exam: Normal Bowel Sounds - Extremities Exam Extremities exam: normal inspection - Skin Skin Exam: Warm Discharge Plan - Follow Up Plan Condition: GOOD Disposition: HOME/ ROUTINE Instructions: Coronary Artery Disease (DC), Left Heart Catheterization (DC) Referrals: PCP,NO [Primary Care Provider] -
== END 2016-11-21 10:20 | disposition home or self-care (01) ==
LOC: CATH 06:09 → 2RSO 09:50 → CATH 11-21 10:20
PROVIDERS: ATTEND Family Medicine
DX: I25.10 Atherosclerotic heart disease of native coronary artery without angina pectoris (principal); Z21 Asymptomatic human immunodeficiency virus [HIV] infection status; J44.9 Chronic obstructive pulmonary disease, unspecified; I10 Essential (primary) hypertension; Z86.73 Personal history of transient ischemic attack (TIA), and cerebral infarction without residual deficits
CPT/HCPCS: 36415 ×2; 80048 ×2; 85025 ×2; 85610; 85730; 86850; 86900; 93005 ×2; 93458; 99152; 99153; C1725; C1760; C1769 ×2; C1874 ×2; C1887 ×2; C2629; C9600; C9601; J0360; J0583; J1644; J2250; J3010; J7040 ×2; Q9967

== ENCOUNTER 2018-06-21 05:08 | Outpatient (CLI) | payer MEDICARE, OTHER | END 2018-06-21 05:09 | disposition home or self-care (01) | LOC: PET-BROA 05:09 | DX: R91.1 Solitary pulmonary nodule (principal) ==